=== PATIENT | female | born 1940 | race Caucasian/White ===

== ENCOUNTER 2018-05-16 11:34 | Emergency (ER) | payer OTHER, MEDICARE ==
[2018-05-16 11:42] VITALS: BP 142/106; PULSE 81; TEMP 98.5; BMI 23.8
--- NOTE | 2018-05-16 12:04 | PDOC ---
History of Present Illness - General Chief Complaint: Pain Stated Complaint: COUGHING/ CHEST PAIN Time Seen by Provider: 05/16/18 12:02 History Source: Patient Exam Limitations: No Limitations - History of Present Illness Initial Comments: 05/16/18 12:19 78 yo F with a hx of DM and HLD presents to the emergency department with epigastric pain that has been ongoing since yesterday with intermittent bouts for the past 4 weeks. Per the patient, onset of pain began after N/V NBNB episode around L[place] with concurrent non-productive cough. She was recently given a z-pack for the coughs and completed the course. Last night, the pain worsened and was 9/10, pressure like, radiating to the chest, with concurrent acid sensation in the oral cavity. Denies radiation to the arms and upper back. Denies the following: fever, chills, vomiting, SOB, dysuria, hematuria, diarrhea , hematochezia, and leg pain/swelling. Meds: metformin, aspirin 81 mg. Uses her medications intermittently and did not take aspirin today. Allergies: NKDA Social: Denies tobacco, alcohol, and substance abuse. Past History - Past Medical History Allergies/Adverse Reactions: Allergies Allergy/AdvReac Type Severity Reaction Status Date / Time No Known Allergies Allergy Verified 05/16/18 11:39 Home Medications: Ambulatory Orders Rosuvastatin Calcium [Crestor] 5 mg PO DAILY 08/02/14 metFORMIN HCL [Glucophage] 1,000 mg PO DAILY 08/02/14 Acetaminophen [Tylenol .Regular Strength -] 650 mg PO Q6H PRN #0 tablet Aspirin [ASA -] 325 mg PO DAILY #40 tablet 01/17/15 Pantoprazole Sodium [Protonix -] 40 mg PO DAILY #40 tablet.ec 01/17/15 Anemia: No Asthma: No Cancer: No Cardiac Disorders: No CVA: No COPD: No CHF: No Dementia: No Diabetes: Yes (NIDDM) GI Disorders: No Disorders: No HTN: No Hypercholesterolemia: Yes Liver Disease: No Seizures: No Thyroid Disease: No - Surgical History Abdominal Surgery: Yes Appendectomy: No Cardiac Surgery: No Cholecystectomy: No Lung Surgery: No Neurologic Surgery: No Orthopedic Surgery: Yes (LAMINECTOMY) - Suicide/Smoking/Psychosocial Hx Smoking History: Never smoked Have you smoked in the past 12 months: No Information on smoking cessation initiated: No Hx Alcohol Use: No Drug/Substance Use Hx: No Substance Use Type: None Hx Substance Use Treatment: No Review of Systems - Review of Systems Able to Perform ROS?: Yes Is the patient limited Turkish proficient: No Constitutional: Yes: Unexplained wgt Loss (10 lbs per patient over 1 month). No : Chills, Diaphoresis, Fever, Weakness, Unintentional Wgt. Loss HEENTM: No: Eye Pain, Recent change in vision, Ear Pain, Nose Pain, Throat Pain , Mouth Pain Respiratory: Yes: Cough. No: Shortness of Breath, SOB with Exertion, Hemoptysis Cardiac (ROS): Yes: Chest Pain (midline sternal/epigastric). No: Lightheadedness, Palpitations, Syncope, Chest Tightness ABD/GI: No: Constipated, Diarrhea, Nausea, Poor Appetite, Poor Fluid Intake, Vomiting : No: Burning, Dysuria, Frequency, Hematuria, Urgency Musculoskeletal: No: Back Pain, Joint Pain, Neck Pain Integumentary: No: Rash Neurological: No: Headache, Dizziness Psychiatric: No: Change in Appetite *Physical Exam - Vital Signs Last Vital Signs Temp Pulse Resp BP Pulse Ox 98.5 F 81 20 142/106 H 99 05/16/18 11:39 05/16/18 11:39 05/16/18 11:39 05/16/18 11:39 05/16/18 11:39 - Physical Exam General Appearance: Yes: Nourished, Appropriately Dressed. No: Apparent Distress, Intoxicated, Obese HEENT: positive: EOMI, GER, Normal Voice, Hearing Grossly Normal. negative: Pale Conjunctivae, Scleral Icterus (R), Scleral Icterus (L), Muffled/Hoarse voice, Nasal Congestion, Rhinorrhea, Excessive drooling Neck: positive: Trachea midline. negative: Tender, Lymphadenopathy (L), Tender lateral, Tender midline Respiratory/Chest: positive: Lungs Clear, Normal Breath Sounds. negative: Chest Tender, Respiratory Distress, Accessory Muscle Use, Crackles, Rales, Rhonchi, Stridor, Wheezing Cardiovascular: positive: Regular Rhythm, Regular Rate, S1, S2. negative: Systolic Murmur Gastrointestinal/Abdominal: positive: Normal Bowel Sounds, Flat, Soft. negative : Tender, Hernia Musculoskeletal: positive: Normal Inspection. negative: CVA Tenderness Extremity: positive: Normal Capillary Refill, Normal Inspection, Normal Range of Motion. negative: Tender Integumentary: positive: Normal Color, Dry, Warm Neurologic: positive: boiler fitter II-XII NML intact, Fully Oriented, Alert, Normal Mood/ Affect, Normal Response, Motor Strength 5/5. negative: EOM Palsy, Facial Droop Moderate Sedation - Procedure Monitoring Vital Signs: Procedure Monitoring Vital Signs Temperature 98.5 F 05/16/18 11:39 Pulse Rate 81 05/16/18 11:39 Respiratory Rate 20 05/16/18 11:39 Blood Pressure 142/106 H 05/16/18 11:39 O2 Sat by Pulse Oximetry (%) 99 05/16/18 11:39 ED Treatment Course - LABORATORY CBC & Chemistry Diagram: 05/16/18 12:45 05/16/18 12:45 Medical Decision Making - Medical Decision Making 05/16/18 13:40 78 yo F with a hx of DM and HLD presents to the emergency department with epigastric pain that has been ongoing since yesterday with intermittent bouts for the past 4 weeks. Initial vitals Initial Vital Signs Temp Pulse Resp BP Pulse Ox 98.5 F 81 20 142/106 H 99 05/16/18 11:39 05/16/18 11:39 05/16/18 11:39 05/16/18 11:39 05/16/18 11:39 Work up: ddx: SBO, gastritis PNA, GERD, colitis vs URI vs esophagitis vs acs vs pericarditis mesenteric ischemia pancreatitis Laboratory Tests 05/16/18 05/16/18 05/16/18 09:15 12:45 12:45 WBC 6.1 RBC 5.09 Hgb 13.7 Hct 40.9 MCV 80.4 MCH 27.0 MCHC 33.6 RDW 14.1 Plt Count 210 MPV 7.8 Absolute Neuts (auto) 3.1 Neutrophils % 50.7 Lymphocytes % 40.4 H Monocytes % 7.2 Eosinophils % 1.2 Basophils % 0.5 Nucleated RBC % 0 Sodium 139 Potassium 3.9 Chloride 104 Carbon Dioxide 24 Anion Gap 11 BUN 15 Creatinine 0.6 Creat Clearance w eGFR > 60 Random Glucose 108 H Hemoglobin A1c % 7.7 H Lactic Acid Calcium 9.1 Total Bilirubin 0.3 AST 14 L ALT 21 Alkaline Phosphatase 59 Creatine Kinase 84 Troponin I < 0.02 Total Protein 7.3 Albumin 3.9 Lipase 206 05/16/18 12:45 WBC RBC Hgb Hct MCV MCH MCHC RDW Plt Count MPV Absolute Neuts (auto) Neutrophils % Lymphocytes % Monocytes % Eosinophils % Basophils % Nucleated RBC % Sodium Potassium Chloride Carbon Dioxide Anion Gap BUN Creatinine Creat Clearance w eGFR Random Glucose Hemoglobin A1c % Lactic Acid 0.9 Calcium Total Bilirubin AST ALT Alkaline Phosphatase Creatine Kinase Troponin I Total Protein Albumin Lipase CT chest and abdomen pelvis with IV contrast showed the following: interstitial lung disease most likely chronic in nature. no evidence of acute pathology within the abdomen or pelvis. labs within normal limits. patient was given zofran, NS, tylenol, maalox, and pepcid. patient has significant improvement in symptoms. patient will be discharged to her PMD for follow up within 1 week after discharge. Dispo: Discharge *DC/Admit/Observation/Transfer Diagnosis at time of Disposition: Abdominal pain Qualifiers: Abdominal location: unspecified location Qualified Code(s): R10.9 - Unspecified abdominal pain - Discharge Dispostion Disposition: HOME Decision to Admit order: No - Referrals Referrals: David Maciel MD [Staff Physician] - - Patient Instructions Printed Discharge Instructions: DI for Abdominal Pain-Adult Additional Instructions: you were seen in the emergency department for abdominal pain. your labs and imaging were within normal limits. please follow up with Dr. Maciel within 1 week after discharge for follow up care and management. please return to the emergency department if you have worsening symptoms or new concerning symptoms such as nausea/vomiting that is uncontrollable, fever/chills with abdominal pain , and altered mental status. thank you. - Post Discharge Activity
[2018-05-16] MEDS ORDERED: SODIUM CHLORIDE 1,000 ML IV STA (12:26)
[2018-05-16] MEDS ORDERED: ACETAMINOPHEN 1000 MG/100 ML VIAL (NON FORMULARY) IVPB ONE (12:26)
[2018-05-16] MEDS ORDERED: FAMOTIDINE 20 MG/50 ML IVPB 20 MG/50 ML MG IVPB ONE ×2 (12:26→12:48)
[2018-05-16] MEDS ORDERED: MAG HYDROX/AL HYDROX/SIMETH 30 ML UNIT-DOSE CUP PO ONE (12:26)
[2018-05-16] MEDS ORDERED: ONDANSETRON 4 MG/2 ML VIAL IVPUSH ONE (12:26)
[2018-05-16] MEDS ORDERED: ONDANSETRON 4 MG/2 ML VIAL ONE (12:48)
[2018-05-16] MEDS ORDERED: ACETAMINOPHEN INJECTION 100 ML IVPB ONE (12:48)
[2018-05-16 12:52] LABS: BASO % 0.5 % (0-2.0); EOS % 1.2 % (0-4.5); HEMATOCRIT 40.9 % (32.4-45.2); HEMOGLOBIN 13.7 GM/dL (10.7-15.3); LYMPH % 40.4 % (8-40); MCHC 33.6 g/dl (32.0-36.0); MEAN CELL VOLUME 80.4 fl (80-96); MEAN PLT VOLUME 7.8 fl (7.5-11.1); MONO % 7.2 % (3.8-10.2); NEUT % 50.7 % (42.8-82.8); PLATELET COUNT 210 K/MM3 (134-434); RBC 5.09 M/mm3 (3.60-5.2); RDW 14.1 % (11.6-15.6); WHITE BLOOD COUNT 6.1 K/mm3 (4.0-10.0)
[2018-05-16 13:27] LABS: ALBUMIN 3.9 g/dl (3.4-5.0); ALK PHOS 59 U/L (45-117); ANION GAP 11 MMOL/L (8-16); BILIRUBIN,TOTAL 0.3 mg/dL (0.2-1); BLOOD UREA NITROGEN 15 mg/dL (7-18); CALCIUM 9.1 mg/dL (8.5-10.1); CHLORIDE 104 mmol/L (98-107); CO2 24 mmol/L (21-32); CREATININE 0.6 mg/dL (0.55-1.3); GLUCOSE,RANDOM 108 mg/dL (74-106); LIPASE 206 U/L (73-393); POTASSIUM 3.9 mmol/L (3.5-5.1); SGOT/AST 14 U/L (15-37); SGPT/ALT 21 U/L (13-61); SODIUM 139 mmol/L (136-145); TOT PROT 7.3 g/dl (6.4-8.2)
[2018-05-16] MEDS ORDERED: MAG HYDROX/AL HYDROX/SIMETH 30 ML UNIT-DOSE CUP ONE (13:29)
--- NOTE | 2018-05-16 15:30 | PDOC ---
Attending Attestation - Resident Resident Name: Benigno Infante - ED Attending Attestation I have performed the following: I have examined & evaluated the patient, The case was reviewed & discussed with the resident, I agree w/resident's findings & plan, Exceptions are as noted - HPI HPI: 05/16/18 15:24 The patient is a 78 year old female, with a significant past medical history of DM and HLD, who presents to the emergency department with, epigastric pain and cough. Patient describes the pain as intermittent and radiating upwards with an acidic taste in her mouth. She denies any recent N/V but had an episode of NBNB emesis around hilario-time. Pt also endorses a dry cough for several days. Patient was recently treated with a Z-pack earlier this month for the cough, without relief. She denies recent fevers, chills, headache or dizziness. She denies recent nausea, vomit, diarrhea or constipation. She denies recent dysuria, frequency, urgency or hematuria. She denies recent shortness of breath. Allergies: NKA Past surgical history: Laminectomy. - Physicial Exam PE: 05/16/18 15:50 "GENERAL: Awake, alert, and fully oriented, in no acute distress. HEAD: No signs of trauma EYES: PERRLA, EOMI, sclera anicteric, conjunctiva clear ENT: Auricles normal inspection, hearing grossly normal, nares patent, oropharynx clear without exudates. Moist mucosa NECK: Nontender, no stepoffs, Normal ROM, supple, no lymphadenopathy, JVD, or masses LUNGS: Breath sounds equal, clear to auscultation bilaterally. No wheezes, and no crackles HEART: Regular rate and rhythm, normal S1 and S2, no murmurs, rubs or gallops ABDOMEN: + epigastric and LLQ TTP, normoactive bowel sounds. No guarding, no rebound. No masses EXTREMITIES: Normal range of motion, no edema. No clubbing or cyanosis. No cords, erythema, or tenderness NEUROLOGICAL: Cranial nerves II through XII intact. 5/5 strength and sensation in all extremities, Normal speech, normal gait, normal cerebellar function SKIN: Warm, Dry, normal turgor, no rashes or lesions noted. - Medical Decision Making 05/16/18 15:50 78 F with dry cough, as well as epigastric and LLQ abdominal pain. - Labs, trop - EKG - CTAP - CT chest 05/16/18 15:51 Labs wnl CTs unremarkable Will DC with GI f/u Pt is well appearing, with normal vitals. Clinically stable for DC at this time. I discussed the physical exam findings, ancillary test results and final diagnoses with the patient. I answered all of the patient's questions. The patient was satisfied with the care received and felt comfortable with the discharge plan and treatment plan. The patient agrees to follow up with the primary care physician within 24-72 hours.
--- NOTE | 2018-05-16 18:29 | EKG ---
Test Reason : Blood Pressure : / mmHG Vent. Rate : 071 BPM Atrial Rate : 071 BPM P-R Int : 150 ms QRS Dur : 080 ms QT Int : 404 ms P-R-T Axes : 059 040 049 degrees QTc Int : 439 ms NORMAL SINUS RHYTHM WHEN COMPARED WITH ECG OF 12-JAN-2015 10:32, NO SIGNIFICANT CHANGE WAS FOUND Confirmed by JOHN SAGE MD ([id number]) on 05/16/2018 6:28:46 PM Referred By: Confirmed By:JOHN SAGE MD
[2018-05-18 11:19] LABS: CHOLESTEROL 174 mg/dL (50-200); HDL CHOLESTEROL 51 mg/dL (40-60); TRIGLYCERIDES 176 mg/dL (0-150)
== END 2018-05-16 15:40 | disposition home or self-care (01) ==
LOC: JER 11:34
PROC: 3E033GC Introduction of Other Therapeutic Substance into Peripheral Vein, Percutaneous Approach (ICD-10-PCS; principal; 2018-05-16)
PROC: 3E033GC Introduction of Other Therapeutic Substance into Peripheral Vein, Percutaneous Approach (ICD-10-PCS; 2018-05-16)
PROC: 3E033NZ Introduction of Analgesics, Hypnotics, Sedatives into Peripheral Vein, Percutaneous Approach (ICD-10-PCS; 2018-05-16)
DX: R10.9 Unspecified abdominal pain (principal); J84.89 Other specified interstitial pulmonary diseases; E11.9 Type 2 diabetes mellitus without complications; Z79.84 Long term (current) use of oral hypoglycemic drugs; E78.5 Hyperlipidemia, unspecified
CPT/HCPCS: 36415; 71260-TC; 74177-TC; 80053; 80061; 82550; 83036; 83605; 83690; 83721; 84484; 85025; 86140; 93005; 93010; 96365; 96375; 99283-25; J0131; J7030

== ENCOUNTER 2019-07-10 13:08 | Emergency (ER) | payer OTHER, MEDICARE ==
--- NOTE | 2019-07-10 13:13 | PDOC ---
History of Present Illness - General Chief Complaint: Injury Stated Complaint: FALL Time Seen by Provider: 07/10/19 13:12 - History of Present Illness Initial Comments: 07/10/19 14:02 Ms. Farfan is a 79 yo female w/ pmh of DM, HTN, and HLD who presents s/p fall earlier today for evaluation of shoulder pain. Patient accompanied by daughter who is a physician and reports patient fell down her stairs, landing on R shoulder. Currently complaining of pain to R shoulder only. Denies LOC or head injury. Denies any other pain at this time. Patient is very clear she lost her balance and that this caused her fall. Denies any preceding symptoms of dizziness or weakness. The patient denies chest pain, shortness of breath, headache and dizziness. Denies fever, chills, nausea, vomit, diarrhea and constipation. Denies dysuria, frequency, urgency and hematuria. Past History - Past Medical History Allergies/Adverse Reactions: Allergies Allergy/AdvReac Type Severity Reaction Status Date / Time No Known Allergies Allergy Verified 05/16/18 11:39 Home Medications: Ambulatory Orders metFORMIN HCL [Glucophage] 1,000 mg PO DAILY 08/02/14 Atorvastatin Ca [Lipitor] 10 mg PO HS 07/10/19 Anemia: No Asthma: No Cancer: No Cardiac Disorders: No CVA: No COPD: No CHF: No Dementia: No Diabetes: Yes (NIDDM) GI Disorders: No Disorders: No HTN: No Hypercholesterolemia: Yes Liver Disease: No Seizures: No Thyroid Disease: No - Surgical History Abdominal Surgery: Yes Appendectomy: No Cardiac Surgery: No Cholecystectomy: No Lung Surgery: No Neurologic Surgery: No Orthopedic Surgery: Yes (LAMINECTOMY) - Psycho Social/Smoking Cessation Hx Smoking History: Never smoked Have you smoked in the past 12 months: No Hx Alcohol Use: No Drug/Substance Use Hx: No Substance Use Type: None Hx Substance Use Treatment: No Review of Systems - Review of Systems Comments:: 07/10/19 14:14 GENERAL/CONSTITUTIONAL: No fever or chills. No weakness. HEAD, EYES, EARS, NOSE AND THROAT: No change in vision. No ear pain or disch arge. No sore throat. CARDIOVASCULAR: No chest pain or shortness of breath RESPIRATORY: No cough, wheezing, or hemoptysis. GASTROINTESTINAL: No nausea, vomiting, diarrhea or constipation. GENITOURINARY: No dysuria, frequency, or change in urination. MUSCULOSKELETAL: +R shoulder pain as described. Patient reporting mild parasthesias along outside of R 5th finger. SKIN: No rash NEUROLOGIC: No headache, vertigo, loss of consciousness, or change in strength/sensation. ENDOCRINE: No increased thirst. No abnormal weight change HEMATOLOGIC/LYMPHATIC: No anemia, easy bleeding, or history of blood clots. ALLERGIC/IMMUNOLOGIC: No hives or skin allergy. *Physical Exam - Physical Exam 07/10/19 14:14 GENERAL: Awake, alert, and fully oriented, in no acute distress HEAD: No signs of trauma, normocephalic, atraumatic EYES: PERRLA, EOMI, sclera anicteric, conjunctiva clear ENT: Auricles normal inspection, hearing grossly normal, nares patent, oropha rynx clear without exudates. Moist mucosa NECK: Normal ROM, supple, no lymphadenopathy, JVD, or masses LUNGS: No distress, speaks full sentences, clear to auscultation bilaterally HEART: Regular rate and rhythm, normal S1 and S2, no murmurs, rubs or gallops, peripheral pulses normal and equal bilaterally. ABDOMEN: Soft, nontender, normoactive bowel sounds. No guarding, no rebound. No masses EXTREMITIES: +R shoulder obviously deformed. Patient having difficulty w/ movement at shoulder joint. Neurovascularly intact. Patient has no sensation change, pulses strong. Otherwise normal inspection, normal range of motion, no edema. No clubbing or cyanosis. NEUROLOGICAL: Cranial nerves II through XII grossly intact. Normal speech, no focal sensorimotor deficits SKIN: Warm, Dry, normal turgor, no rashes or lesions noted. Moderate Sedation - Pre-Procedure Assessment Joint Reduction Is this a Moderate (Conscious) sedation patient?: Yes Med/Surg Hx & PE performed: Yes Does the patient have a history of Obstructive Sleep Apnea: No Prior complications with sedation/analgesia: No NPO since (date): 07/10/19 NPO since (time): 08:00 Mallampati Score: I Consent obtained: Written Time out called (time): 14:00 Items checked for time out procedure: All work stopped, Patient identified using 2 identifiers, Procedure to be performed verified & agreed, Allergies noted, Consent read, Site marked & verified (if indicated), ED physician/EPOXY SPECIALIST/PA/Resident identified, Patient position verified, All active procedure participants present from the beginning Sedation agent: Propofol - Post Procedure Assessment Tolerated procedure well: Yes Was a reversal agent used?: No Patient evaluation: Awake, alert and oriented, Vital signs reviewed, Cardiopulmonary exam normal, Pain controlled Printed Discharge Instructions given: Yes Procedures - Joint Reduction Right Joint Reduction Site: right: Shoulder Pre-Procedure NV Exam: normal Conscious Sedation: Yes Reduction Attempts: 2 Procedure: Other Post-Procedure NV Exam: normal Complications: No Post Joint Reduction Film: joint reduced Splint: Yes ED Treatment Course - LABORATORY CBC & Chemistry Diagram: 07/10/19 13:26 07/10/19 13:26 Medical Decision Making - Medical Decision Making 07/10/19 14:15 Ms. Farfan is a 79 yo female w/ pmh as described who presents s/p mechanical fall. Patient well appearing w/ shoulder deformity only. Patient evaluated w/ XR and pre-op labs prophylactically. XR revealed simple anterior dislocation. Patient consented to conscious sedation - patient given 35 mg ketamine and 35 mg propofol with good effect. Joint reduction attempted w/out difficulty. Confirmatory XR pending. 07/10/19 15:32 Repeat film revealed non-reduction. Repeat concious sedation with 35mg ketamine/35mg propofol done and joint reduction again attempted. XR pending. 07/10/19 15:40 XR confirmed shoulder reduction. Patient will follow-up outpatient for further evaluation. Tingling of R 5th finger patient previously reported has ceased. No concern for acute process at this time. Discharging to home. Discharge - Discharge Information Problems reviewed: Yes Clinical Impression/Diagnosis: Shoulder dislocation Qualifiers: Encounter type: initial encounter Laterality: right Qualified Code(s): S43.004A - Unspecified dislocation of right shoulder joint, initial encounter Condition: Improved Disposition: HOME - Follow up/Referral Referrals: Itz Spring MD [Staff Physician] - - Patient Discharge Instructions Patient Printed Discharge Instructions: DI for Shoulder Dislocation, DI for Moderate Sedation Additional Instructions: Ms. Farfan was evaluated today in the ER following her fall. We performed shoulder Xray which revealed a shoulder dislocation. We were able to reduce the shoulder and discussed the case with orthopedics who will evaluate outpatient. She may take over the counter motrin or tylenol per package instructions as needed for pain control. Please follow-up with orthopedics as discussed. Return to ER if any change in strength or sensation, fever, chills, or other concerning symptoms. - Post Discharge Activity
[2019-07-10] MEDS ORDERED: HYDROmorphone HCl 2 MG/ML VIAL ONE (13:18)
[2019-07-10 13:19] VITALS: PULSE 70; TEMP 97.5; BMI 27.4
[2019-07-10] MEDS ORDERED: HYDROmorphone HCL CARPU-JECT 2 MG/1 ML DISP.SYRIN IVPUSH ONE (13:20)
[2019-07-10] MEDS ORDERED: ONDANSETRON 4 MG/2 ML VIAL IVPUSH ONE ×2 (13:25→16:09)
--- NOTE | 2019-07-10 13:25 | PDOC ---
Attending Attestation - Resident Resident Name: Tristin Granados - ED Attending Attestation I have performed the following: I have examined & evaluated the patient, The case was reviewed & discussed with the resident, I agree w/resident's findings & plan - HPI HPI: 07/10/19 13:33 79-year-old female with history of hyperlipidemia, diabetes type 2, GERD and osteoarthritis status post left medial makoplasty (2014), kidney stone status post ureteral stent presenting after fall and landing on her right shoulder. Presenting with right shoulder pain, difficulty moving secondary to the pain. Denies any paresthesias or weakness. Denies LOC or head injury. no ASA or AC use 07/10/19 13:33 - Physicial Exam PE: 07/10/19 13:23 Physical exam: General: GCS 15 - NAD, well appearing HEENT: NCAT, PERRL, EOMI. Airway intact. No battles sign or raccoon eyes. No e/o ocular. Dentition intact. No e/o septal hematoma, nasal bridge stable. Neck: neck supple, no midline C spine tenderness or deformity, ROM intact. No anterior mass or crepitus, trachea midline. Resp: Lungs clear bilaterally Chest: no clavicle or chest wall tenderness or crepitus CVS: RRR, 2+ pulses throughout. Abdomen: Abdomen soft, nontender, nondistended. Back: Back nontender, no midline spinal tenderness along cervical/thoracic/lumbar spine, FROM, no stepoffs. MSK: Pelvis stable, Extremities symmetric, no focal areas of tenderness or deformities, proximal and distally; no pain on axial loading. FROM in all extrem. +right anterior shoulder TTP, palp deformity, shoulder abduction/adduction/flexion/extension limited 2/2 pain and prox strength 5/5 actively against resistance. 5/5 shoulder shrug strength. deltoid sensation intact; sensation grossly intact in median/radial/ulnar distribution. distal rn oncology research strength 5/5. 2+ radialis pulses bilaterally and symmetric. FDS And FDP intact in affected finger. Neuro: Alert, no focal neuro deficits. Sensation and strength intact throughout. Skin: intact, normal color and well perfused. 07/12/19 11:52 - Medical Decision Making 07/10/19 13:24 Vital Signs Temp Pulse Resp BP Pulse Ox 97.5 F L 70 20 161/67 97 07/10/19 13:12 03/15/20 13:12 07/10/19 13:12 07/10/19 13:12 07/10/19 13:12 Trauma ddx: ICH, SDH/ EDH, C spine injury/strain, extremity sprain/fracture, pelvis fracture. MSK contusion, msk spasms. Rib fractures. Clinically doubt Intra abdominal and thoracic injuries/bleed VS reviewed, wnl Xray right shoulder with anterior dislocation NVI consented for procedural sedation given ketofol, 0.5mg/kg per agent for conscious sedation initial attempt unsuccessful repeated with the resident with ketofol 0.5mg/kg successful on 2nd attempt with the Latrell method repeat xray post procedure with normal alignment, successful reduction no acute fx or dislocation. shoulder immobilizer, Rest ice and elevation. Pain control with OTC meds including tylenol as needed every 6 hours; no narcotics needed. Ortho followup provided. Please return to ED for increased pain, weakness, numbness/tingling, fever, or redness. or signs of compartment syndrome. f/u Yoseph Haines/Saw group sedation instructions given 07/10/19 15:52 Discharge - Discharge Information Problems reviewed: Yes Clinical Impression/Diagnosis: Shoulder dislocation Qualifiers: Encounter type: initial encounter Laterality: right Qualified Code(s): S43.004A - Unspecified dislocation of right shoulder joint, initial encounter Condition: Improved Disposition: HOME - Admission No - Follow up/Referral Referrals: Itz Spring MD [Staff Physician] - - Patient Discharge Instructions Patient Printed Discharge Instructions: DI for Shoulder Dislocation, DI for Moderate Sedation Additional Instructions: Ms. Farfan was evaluated today in the ER following her fall. We performed shoulder Xray which revealed a shoulder dislocation. We were able to reduce the shoulder and discussed the case with orthopedics who will evaluate outpatient. She may take over the counter motrin or tylenol per package instructions as needed for pain control. Please follow-up with orthopedics as discussed. Return to ER if any change in strength or sensation, fever, chills, or other concerning sym ptoms. - Post Discharge Activity
[2019-07-10] MEDS ORDERED: ONDANSETRON 4 MG/2 ML VIAL ONE ×2 (13:30→16:10)
[2019-07-10 13:46] LABS: BASO % 0.2 % (0-2.0); HEMATOCRIT 42.6 % (32.4-45.2); HEMOGLOBIN 13.7 GM/dL (10.7-15.3); LYMPH % 44.3 % (8-40); MCH 26.3 pg (25.7-33.7); MCHC 32.1 g/dl (32.0-36.0); MEAN CELL VOLUME 82.1 fl (80-96); MEAN PLT VOLUME 8.6 fl (7.5-11.1); MONO % 8.4 % (3.8-10.2); NEUT % 45.1 % (42.8-82.8); PLATELET COUNT 194 K/MM3 (134-434); RBC 5.19 M/mm3 (3.60-5.2); WHITE BLOOD COUNT 6.9 K/mm3 (4.0-10.0)
[2019-07-10] MEDS ORDERED: KETAMINE HCL 200 MG/20 ML VIAL IVPUSH ONE ×2 (13:48→15:17)
[2019-07-10] MEDS ORDERED: PROPOFOL 200 MG/20 ML VIAL IVPUSH ONE ×2 (13:48→15:17)
[2019-07-10 13:54] LABS: INR 0.93 (0.83-1.09)
[2019-07-10] MEDS ORDERED: KETAMINE HCL 200 MG/20 ML VIAL ONE (13:54)
[2019-07-10] MEDS ORDERED: PROPOFOL 20 ML ONE (13:55)
[2019-07-10 13:57] LABS: ACTIVATED PTT 28.3 SECONDS (25.2-36.5)
[2019-07-10 14:12] LABS: ALBUMIN 3.8 g/dl (3.4-5.0); BILIRUBIN,TOTAL 0.2 mg/dL (0.2-1); BLOOD UREA NITROGEN 16.4 mg/dL (7-18); CALCIUM 8.9 mg/dL (8.5-10.1); CREATININE 0.5 mg/dL (0.55-1.3); POTASSIUM 4.2 mmol/L (3.5-5.1); TOT PROT 7.4 g/dl (6.4-8.2)
[2019-07-10 17:48] VITALS: BP 139/64
== END 2019-07-10 16:32 | disposition home or self-care (01) ==
LOC: JER 13:08
PROC: 3E033FZ Introduction of Intracirculatory Anesthetic into Peripheral Vein, Percutaneous Approach (ICD-10-PCS; principal; 2019-07-10)
PROC: 3E033NZ Introduction of Analgesics, Hypnotics, Sedatives into Peripheral Vein, Percutaneous Approach (ICD-10-PCS; 2019-07-10)
PROC: 3E033GC Introduction of Other Therapeutic Substance into Peripheral Vein, Percutaneous Approach (ICD-10-PCS; 2019-07-10)
DX: S43.004A Unspecified dislocation of right shoulder joint, initial encounter (principal); W10.8XXA Fall (on) (from) other stairs and steps, initial encounter; Y93.89 Activity, other specified; Y92.038 Other place in apartment as the place of occurrence of the external cause; Y99.8 Other external cause status; I10 Essential (primary) hypertension; E78.00 Pure hypercholesterolemia, unspecified; E11.9 Type 2 diabetes mellitus without complications; Z79.84 Long term (current) use of oral hypoglycemic drugs
CPT/HCPCS: 36415; 73030-TC-RT-FY; 80053; 85025; 85610; 85730; 96374; 96375; 96376; 99285-25

== ENCOUNTER 2020-07-07 14:15 | Inpatient (IN) | payer OTHER ==
[2020-07-07] MEDS ORDERED: ONDANSETRON 4 MG/2 ML VIAL IVPUSH ONE (14:20)
[2020-07-07] MEDS ORDERED: SODIUM CHLORIDE 1,000 ML IV STA (14:20)
[2020-07-07] MEDS ORDERED: PIPERACILLIN/TAZOB 3.375 GM 3.375 GM/50 ML BAG IVPB ONE (14:44)
[2020-07-07] MEDS ORDERED: ONDANSETRON 4 MG/2 ML VIAL ONE (14:44)
[2020-07-07] MEDS ORDERED: MAG HYDROX/AL HYDROX/SIMETH 30 ML UNIT-DOSE CUP PO ONE (14:45)
[2020-07-07] MEDS ORDERED: FAMOTIDINE 20 MG/50 ML IVPB 20 MG/50 ML MG IVPB ONE ×2 (14:45→15:39)
[2020-07-07] MEDS ORDERED: ACETAMINOPHEN 1000 MG/100 ML VIAL (NON FORMULARY) IVPB ONE (14:46)
[2020-07-07 15:33] LABS: BASO % 0.1 % (0-2.0); HEMATOCRIT 35.6 % (32.4-45.2); HEMOGLOBIN 11.6 GM/dL (10.7-15.3); LYMPH % 9.5 % (8-40); MCH 26.6 pg (25.7-33.7); MCHC 32.5 g/dl (32.0-36.0); MEAN CELL VOLUME 81.7 fl (80-96); MEAN PLT VOLUME 8.5 fl (7.5-11.1); MONO % 10.9 % (3.8-10.2); NEUT % 79.5 % (42.8-82.8); PLATELET COUNT 165 K/MM3 (134-434); RBC 4.36 M/mm3 (3.60-5.2); RDW 14.2 % (11.6-15.6); WHITE BLOOD COUNT 8.7 K/mm3 (4.0-10.0)
[2020-07-07] MEDS: PIPERACILLIN/TAZOB 3.375 GM 3.375 GM in DEXTROSE 5%-WATER - 50 ML IVPB SCH ×2 (15:36→22:10)
[2020-07-07] MEDS ORDERED: MAG HYDROX/AL HYDROX/SIMETH 30 ML UNIT-DOSE CUP ONE (15:39)
[2020-07-07] MEDS ORDERED: ACETAMINOPHEN INJECTION 100 ML IVPB ONE (15:39)
[2020-07-07 15:41] LABS: INR 1.14 (0.83-1.09)
[2020-07-07 15:44] LABS: ACTIVATED PTT 25.8 SECONDS (25.2-36.5)
[2020-07-07 15:57] LABS: PH,URINE 5.5 (5.0-8.0); URINE APPEARANCE Slightly Cloudy; URINE BILIRUBIN Negative (NEGATIVE); URINE COLOR Yellow; URINE GLUCOSE (UA) Trace (NEGATIVE); URINE KETONE 2+ (NEGATIVE); URINE LEUK ESTERASE 1+ (NEGATIVE); URINE NITRITE Positive (NEGATIVE); URINE PROTEIN 2+ (NEGATIVE); URINE UROBILINOGEN 0.2 mg/dL (0.2-1.0)
[2020-07-07 15:57] LABS: CHLORIDE 103 mmol/L (98-107); POTASSIUM 3.6 mmol/L (3.5-5.1); SODIUM 134 mmol/L (136-145)
[2020-07-07 15:59] LABS: CALCIUM 8.6 mg/dL (8.5-10.1)
[2020-07-07 16:00] LABS: ALBUMIN 3.3 g/dl (3.4-5.0); ANION GAP 9 MMOL/L (8-16); CO2 22 mmol/L (21-32); GLUCOSE,RANDOM 188 mg/dL (74-106)
[2020-07-07 16:03] LABS: CREATININE 0.6 mg/dL (0.55-1.3); SGOT/AST 15 U/L (15-37); SGPT/ALT 22 U/L (13-61)
[2020-07-07 16:04] LABS: BILIRUBIN,TOTAL 0.6 mg/dL (0.2-1)
[2020-07-07 16:05] LABS: TOT PROT 6.7 g/dl (6.4-8.2)
[2020-07-07 16:06] LABS: ALK PHOS 67 U/L (45-117)
[2020-07-07] MEDS ORDERED: ONDANSETRON 4 MG/2 ML VIAL IVPUSH PRN (16:49)
[2020-07-07] MEDS ORDERED: SODIUM CHLORIDE 1,000 ML IV SCH (17:00)
[2020-07-07 17:12] LABS: EPI CELLS 6.8 /uL (0-25.1); HYALINE CASTS 1.57 /uL (0-3.1); URINE BACTERIA 2918.5 /uL (0-1359); URINE CRYSTALS 0 /hpf; URINE RBC 71.4 /uL (0-23.9); URINE WBC 8952.3 /uL (0-25.8)
[2020-07-07] MEDS ORDERED: TAMSULOSIN HCL 0.4 MG CAP ONE (17:31)
[2020-07-07] MEDS: TAMSULOSIN HCL 0.4 MG CAP PO SCH (17:41)
[2020-07-07] MEDS ORDERED: PIPERACILLIN/TAZOBACTAM 3.375 GM VIAL IVPB ONE (21:53)
[2020-07-07] MEDS ORDERED: DEXTROSE 5%-WATER - 50 ML IVPB ONE (21:53)
[2020-07-07] MEDS ORDERED: CEFTRIAXONE 1 GM in DEXTROSE 5%-WATER - 50 ML IVPB SCH (22:00)
[2020-07-07] MEDS: ATORVASTATIN CA 10 MG TABLET (FP) PO SCH (22:13)
[2020-07-07] MEDS: ACETAMINOPHEN 325 MG TABLET (FP) PO PRN (22:44)
[2020-07-08] MEDS ORDERED: DEXTROSE 5%-WATER - 50 ML IVPB ONE ×3 (03:53→15:40)
[2020-07-08] MEDS ORDERED: PIPERACILLIN/TAZOBACTAM 3.375 GM VIAL IVPB ONE ×3 (03:53→15:39)
[2020-07-08] MEDS: PIPERACILLIN/TAZOB 3.375 GM 3.375 GM in DEXTROSE 5%-WATER - 50 ML IVPB SCH ×4 (04:06→18:10)
[2020-07-08] MEDS: ACETAMINOPHEN 325 MG TABLET (FP) PO PRN ×3 (06:21→21:46)
[2020-07-08] MEDS: TAMSULOSIN HCL 0.4 MG CAP PO SCH (08:37)
[2020-07-08 08:40] LABS: BASO % 0.2 % (0-2.0); EOS % 0.4 % (0-4.5); LYMPH % 11.4 % (8-40); MCHC 33.3 g/dl (32.0-36.0); MEAN PLT VOLUME 8.3 fl (7.5-11.1); MONO % 12.5 % (3.8-10.2); NEUT % 75.5 % (42.8-82.8); PLATELET COUNT 161 K/MM3 (134-434); RBC 4.08 M/mm3 (3.60-5.2); RDW 14.3 % (11.6-15.6)
[2020-07-08] MEDS ORDERED: PIPERACILLIN/TAZOB 3.375 GM 3.375 GM in DEXTROSE 5%-WATER - 50 ML IVPB SCH (09:00)
[2020-07-08 09:10] LABS: POTASSIUM 3.8 mmol/L (3.5-5.1)
[2020-07-08 09:18] LABS: ALBUMIN 2.8 g/dl (3.4-5.0); BLOOD UREA NITROGEN 13.2 mg/dL (7-18); CALCIUM 8.2 mg/dL (8.5-10.1)
[2020-07-08] MEDS: HEPARIN NA (PORCINE) 5,000 UNITS/ML 1ML VIAL SQ SCH ×2 (09:19→21:44)
[2020-07-08] MEDS: FAMOTIDINE 20 MG TABLET PO SCH (09:19)
[2020-07-08 09:21] LABS: BILIRUBIN,TOTAL 0.6 mg/dL (0.2-1); CREATININE 0.6 mg/dL (0.55-1.3); TOT PROT 5.9 g/dl (6.4-8.2)
[2020-07-08] MEDS ORDERED: GENTAMICIN 80 MG PREMIXED IVPB 80 MG/100 ML BAG IVPB ONE (10:30)
[2020-07-08] MEDS: ATORVASTATIN CA 10 MG TABLET (FP) PO SCH (21:44)
[2020-07-08] MEDS ORDERED: GENTAMICIN INJECTION 100 MG in SODIUM CHLORIDE 97.5 ML IVPB ONE (23:30)
[2020-07-08] MEDS: SODIUM CHLORIDE 1,000 ML IV SCH (23:45)
[2020-07-09] MEDS ORDERED: PIPERACILLIN/TAZOBACTAM 3.375 GM VIAL IVPB ONE ×2 (01:36→09:20)
[2020-07-09] MEDS ORDERED: DEXTROSE 5%-WATER - 50 ML IVPB ONE ×2 (01:37→09:20)
[2020-07-09] MEDS: PIPERACILLIN/TAZOB 3.375 GM 3.375 GM in DEXTROSE 5%-WATER - 50 ML IVPB SCH ×2 (01:46→10:54)
[2020-07-09 08:35] LABS: BASO % 0.2 % (0-2.0); EOS % 0.9 % (0-4.5); HEMATOCRIT 36.3 % (32.4-45.2); LYMPH % 30.3 % (8-40); MEAN CELL VOLUME 81.7 fl (80-96); MEAN PLT VOLUME 8.2 fl (7.5-11.1); MONO % 11.1 % (3.8-10.2); NEUT % 57.5 % (42.8-82.8); PLATELET COUNT 180 K/MM3 (134-434); RBC 4.44 M/mm3 (3.60-5.2); RDW 14.8 % (11.6-15.6); WHITE BLOOD COUNT 4.7 K/mm3 (4.0-10.0)
[2020-07-09 08:50] LABS: POTASSIUM 3.9 mmol/L (3.5-5.1)
[2020-07-09 08:58] LABS: ALBUMIN 2.8 g/dl (3.4-5.0); CALCIUM 8.5 mg/dL (8.5-10.1)
[2020-07-09 08:59] LABS: BLOOD UREA NITROGEN 9.1 mg/dL (7-18)
[2020-07-09 09:01] LABS: BILIRUBIN,TOTAL 0.4 mg/dL (0.2-1)
[2020-07-09 09:02] LABS: CREATININE 0.6 mg/dL (0.55-1.3); TOT PROT 6.5 g/dl (6.4-8.2)
[2020-07-09] MEDS ORDERED: MEROPENEM 1 GM VIAL (RESTRICTED TO ID) IVPB ONE ×2 (10:50→17:30)
[2020-07-09] MEDS ORDERED: DEXTROSE 5%-WATER 100 ML IVPB ONE ×2 (10:50→17:30)
[2020-07-09] MEDS: MEROPENEM 1 GM in DEXTROSE 5%-WATER 100 ML IVPB SCH ×2 (10:51→17:33)
[2020-07-09] MEDS: TAMSULOSIN HCL 0.4 MG CAP PO SCH (10:52)
[2020-07-09] MEDS: HEPARIN NA (PORCINE) 5,000 UNITS/ML 1ML VIAL SQ SCH ×2 (10:52→21:00)
[2020-07-09] MEDS: FAMOTIDINE 20 MG TABLET PO SCH (10:52)
[2020-07-09] MEDS: ACETAMINOPHEN 325 MG TABLET (FP) PO PRN (17:33)
[2020-07-09] MEDS ORDERED: PNEUMOC 13-VAL CONJ-DIP CRM/PF 0.5 ML DISP.SYRIN IM ONE (19:02)
[2020-07-09] MEDS: ATORVASTATIN CA 10 MG TABLET (FP) PO SCH (21:00)
[2020-07-09] MEDS: SODIUM CHLORIDE 1,000 ML IV SCH (23:47)
[2020-07-09] MEDS ORDERED: PT OWN MED DRAWER 7, Y5N ONE (23:51)
[2020-07-10] MEDS ORDERED: MEROPENEM 1 GM VIAL (RESTRICTED TO ID) IVPB ONE ×3 (00:32→16:58)
[2020-07-10] MEDS ORDERED: DEXTROSE 5%-WATER 100 ML IVPB ONE ×3 (00:32→16:58)
[2020-07-10] MEDS: MEROPENEM 1 GM in DEXTROSE 5%-WATER 100 ML IVPB SCH ×3 (02:25→17:01)
[2020-07-10] MEDS ORDERED: SODIUM CHLORIDE 1,000 ML IV SCH (03:59)
[2020-07-10 08:00] LABS: BASO % 0.3 % (0-2.0); EOS % 1.5 % (0-4.5); HEMATOCRIT 35.6 % (32.4-45.2); HEMOGLOBIN 11.6 GM/dL (10.7-15.3); MCH 26.4 pg (25.7-33.7); MCHC 32.6 g/dl (32.0-36.0); MEAN PLT VOLUME 8.2 fl (7.5-11.1); MONO % 11.1 % (3.8-10.2); NEUT % 58.1 % (42.8-82.8); PLATELET COUNT 192 K/MM3 (134-434); RBC 4.39 M/mm3 (3.60-5.2); RDW 14.6 % (11.6-15.6)
[2020-07-10] MEDS ORDERED: POLYETHYLENE GLYCOL 3350 119 GM BTL PO ONE (08:00)
[2020-07-10 08:13] LABS: POTASSIUM 3.7 mmol/L (3.5-5.1)
[2020-07-10 08:17] LABS: ALBUMIN 2.7 g/dl (3.4-5.0); BLOOD UREA NITROGEN 6.5 mg/dL (7-18)
[2020-07-10 08:21] LABS: CREATININE 0.5 mg/dL (0.55-1.3)
[2020-07-10 08:22] LABS: BILIRUBIN,TOTAL 0.3 mg/dL (0.2-1); TOT PROT 6.1 g/dl (6.4-8.2)
[2020-07-10 08:29] LABS: INR 1.03 (0.83-1.09); PROTHROMBIN TIME (PATIENT) 12.4 SEC (9.7-13.0)
[2020-07-10] MEDS ORDERED: PNEUMOC 13-VAL CONJ-DIP CRM/PF 0.5 ML DISP.SYRIN IM ONE ×2 (10:00→17:00)
[2020-07-10] MEDS: TAMSULOSIN HCL 0.4 MG CAP PO SCH (10:04)
[2020-07-10] MEDS: LACTOBACILLUS ACIDOPHILUS 1 TABLET PO SCH (10:16)
[2020-07-10] MEDS: FAMOTIDINE 20 MG TABLET PO SCH (10:17)
[2020-07-10] MEDS: HEPARIN NA (PORCINE) 5,000 UNITS/ML 1ML VIAL SQ SCH ×2 (10:17→21:19)
[2020-07-10] MEDS: ATORVASTATIN CA 10 MG TABLET (FP) PO SCH (21:19)
[2020-07-11] MEDS: SODIUM CHLORIDE 1,000 ML IV SCH ×3 (00:21→21:45)
[2020-07-11] MEDS ORDERED: DEXTROSE 5%-WATER 100 ML IVPB ONE ×3 (00:23→14:04)
[2020-07-11] MEDS ORDERED: MEROPENEM 1 GM VIAL (RESTRICTED TO ID) IVPB ONE ×2 (00:23→09:26)
[2020-07-11] MEDS: MEROPENEM 1 GM in DEXTROSE 5%-WATER 100 ML IVPB SCH ×2 (01:49→09:32)
[2020-07-11 09:06] LABS: INR 0.96 (0.83-1.09); PROTHROMBIN TIME (PATIENT) 11.8 SEC (9.7-13.0)
[2020-07-11 09:09] LABS: BASO % 0.2 % (0-2.0); EOS % 1.8 % (0-4.5); HEMATOCRIT 35.9 % (32.4-45.2); HEMOGLOBIN 11.9 GM/dL (10.7-15.3); LYMPH % 30.6 % (8-40); MCH 26.5 pg (25.7-33.7); MCHC 33.1 g/dl (32.0-36.0); MEAN CELL VOLUME 80.3 fl (80-96); MEAN PLT VOLUME 7.9 fl (7.5-11.1); MONO % 9.6 % (3.8-10.2); NEUT % 57.8 % (42.8-82.8); PLATELET COUNT 218 K/MM3 (134-434); RBC 4.47 M/mm3 (3.60-5.2); WHITE BLOOD COUNT 5.3 K/mm3 (4.0-10.0)
[2020-07-11 09:18] LABS: POTASSIUM 3.6 mmol/L (3.5-5.1)
[2020-07-11 09:20] LABS: CALCIUM 8.7 mg/dL (8.5-10.1)
[2020-07-11 09:21] LABS: ALBUMIN 2.7 g/dl (3.4-5.0); BLOOD UREA NITROGEN 7.7 mg/dL (7-18)
[2020-07-11 09:24] LABS: CREATININE 0.5 mg/dL (0.55-1.3)
[2020-07-11 09:26] LABS: BILIRUBIN,TOTAL 0.4 mg/dL (0.2-1); TOT PROT 6.2 g/dl (6.4-8.2)
[2020-07-11 09:27] LABS: ALBUMIN 2.8 g/dl (3.4-5.0)
[2020-07-11 09:29] LABS: BILIRUBIN,DIRECT 0.1 mg/dL (0.0-0.2)
[2020-07-11 09:31] LABS: BILIRUBIN,TOTAL 0.2 mg/dL (0.2-1); TOT PROT 6.3 g/dl (6.4-8.2)
[2020-07-11] MEDS: FAMOTIDINE 20 MG TABLET PO SCH (09:32)
[2020-07-11] MEDS: LACTOBACILLUS ACIDOPHILUS 1 TABLET PO SCH (09:32)
[2020-07-11] MEDS: HEPARIN NA (PORCINE) 5,000 UNITS/ML 1ML VIAL SQ SCH ×2 (09:32→21:45)
[2020-07-11] MEDS: TAMSULOSIN HCL 0.4 MG CAP PO SCH (09:32)
[2020-07-11] MEDS: CEFTRIAXONE 2 GM in DEXTROSE 5%-WATER 2 GM/100 ML BAG IVPB SCH (14:07)
[2020-07-11] MEDS: ATORVASTATIN CA 10 MG TABLET (FP) PO SCH (21:45)
[2020-07-12 07:55] LABS: BASO % 0.3 % (0-2.0); HEMATOCRIT 36.1 % (32.4-45.2); HEMOGLOBIN 11.7 GM/dL (10.7-15.3); LYMPH % 34.9 % (8-40); MCH 26.3 pg (25.7-33.7); MCHC 32.3 g/dl (32.0-36.0); MEAN CELL VOLUME 81.3 fl (80-96); MONO % 11.3 % (3.8-10.2); NEUT % 51.5 % (42.8-82.8); PLATELET COUNT 215 K/MM3 (134-434); RBC 4.44 M/mm3 (3.60-5.2); RDW 14.9 % (11.6-15.6); WHITE BLOOD COUNT 6.5 K/mm3 (4.0-10.0)
[2020-07-12 08:13] LABS: POTASSIUM 3.9 mmol/L (3.5-5.1)
[2020-07-12 08:41] LABS: ALBUMIN 2.8 g/dl (3.4-5.0); BLOOD UREA NITROGEN 9.6 mg/dL (7-18)
[2020-07-12 08:43] LABS: BILIRUBIN,DIRECT 0.1 mg/dL (0.0-0.2)
[2020-07-12 08:44] LABS: CREATININE 0.5 mg/dL (0.55-1.3)
[2020-07-12 08:45] LABS: BILIRUBIN,TOTAL 0.3 mg/dL (0.2-1); TOT PROT 6.4 g/dl (6.4-8.2)
[2020-07-12] MEDS ORDERED: PT OWN MED DRAWER 7, Y5N ONE (10:27)
[2020-07-12] MEDS ORDERED: DEXTROSE 5%-WATER 100 ML IVPB ONE (10:28)
[2020-07-12] MEDS: FAMOTIDINE 20 MG TABLET PO SCH (10:35)
[2020-07-12] MEDS: TAMSULOSIN HCL 0.4 MG CAP PO SCH (10:35)
[2020-07-12] MEDS: LACTOBACILLUS ACIDOPHILUS 1 TABLET PO SCH (10:35)
[2020-07-12] MEDS: HEPARIN NA (PORCINE) 5,000 UNITS/ML 1ML VIAL SQ SCH ×2 (10:38→21:14)
[2020-07-12] MEDS: CEFTRIAXONE 2 GM in DEXTROSE 5%-WATER 2 GM/100 ML BAG IVPB SCH (12:14)
[2020-07-12 13:07] LABS: HEP B CORE AB, TOT Positive (Negative); TRANSGLUTAMINASE IGA < 2 U/mL (0-3); TRANSGLUTAMINASE IGG < 2 U/mL (0-5)
[2020-07-12] MEDS: SODIUM CHLORIDE 1,000 ML IV SCH ×2 (18:50→21:13)
[2020-07-12 22:09] LABS: PH,URINE 6.5 (5.0-8.0); URINE APPEARANCE CLEAR; URINE BILIRUBIN NEGATIVE (NEGATIVE); URINE COLOR YELLOW; URINE GLUCOSE (UA) NEGATIVE (NEGATIVE); URINE KETONE NEGATIVE (NEGATIVE); URINE LEUK ESTERASE NEGATIVE (NEGATIVE); URINE NITRITE NEGATIVE (NEGATIVE); URINE PROTEIN NEGATIVE (NEGATIVE); URINE UROBILINOGEN 0.2 mg/dL (0.2-1.0)
[2020-07-13 09:44] LABS: BASO % 0.2 % (0-2.0); EOS % 2.7 % (0-4.5); HEMATOCRIT 36.4 % (32.4-45.2); HEMOGLOBIN 11.9 GM/dL (10.7-15.3); LYMPH % 30.2 % (8-40); MCH 26.5 pg (25.7-33.7); MCHC 32.5 g/dl (32.0-36.0); MEAN CELL VOLUME 81.3 fl (80-96); MEAN PLT VOLUME 7.8 fl (7.5-11.1); MONO % 8.2 % (3.8-10.2); NEUT % 58.7 % (42.8-82.8); PLATELET COUNT 243 K/MM3 (134-434); RBC 4.48 M/mm3 (3.60-5.2); RDW 14.8 % (11.6-15.6); WHITE BLOOD COUNT 6.2 K/mm3 (4.0-10.0)
[2020-07-13] MEDS ORDERED: DEXTROSE 5%-WATER 100 ML IVPB ONE (09:46)
[2020-07-13 10:10] LABS: POTASSIUM 4.1 mmol/L (3.5-5.1)
[2020-07-13 10:17] LABS: ALBUMIN 2.9 g/dl (3.4-5.0); BLOOD UREA NITROGEN 12.2 mg/dL (7-18); CALCIUM 8.8 mg/dL (8.5-10.1)
[2020-07-13 10:20] LABS: BILIRUBIN,DIRECT 0.1 mg/dL (0.0-0.2)
[2020-07-13 10:21] LABS: CREATININE 0.7 mg/dL (0.55-1.3)
[2020-07-13 10:22] LABS: BILIRUBIN,TOTAL 0.6 mg/dL (0.2-1); TOT PROT 6.5 g/dl (6.4-8.2)
[2020-07-13] MEDS ORDERED: PT OWN MED DRAWER 7, Y5N ONE ×2 (11:10→16:42)
[2020-07-13] MEDS: TAMSULOSIN HCL 0.4 MG CAP PO SCH (11:17)
[2020-07-13] MEDS: LACTOBACILLUS ACIDOPHILUS 1 TABLET PO SCH (11:18)
[2020-07-13] MEDS: FAMOTIDINE 20 MG TABLET PO SCH (11:18)
[2020-07-13] MEDS: ERTAPENEM SODIUM 1 GM in SODIUM CHLORIDE 50 ML IVPB SCH (13:06)
[2020-07-13] MEDS: HEPARIN NA (PORCINE) 5,000 UNITS/ML 1ML VIAL SQ SCH ×2 (16:41→22:59)
[2020-07-13] MEDS: CEFTRIAXONE 2 GM in DEXTROSE 5%-WATER 2 GM/100 ML BAG IVPB SCH (16:41)
[2020-07-13] MEDS: SODIUM CHLORIDE 1,000 ML IV SCH ×2 (17:33→22:58)
[2020-07-14] MEDS ORDERED: PT OWN MED DRAWER 7, Y5N ONE ×3 (05:46→16:33)
[2020-07-14 07:45] LABS: ALBUMIN 2.9 g/dl (3.4-5.0)
[2020-07-14 07:48] LABS: BILIRUBIN,DIRECT 0.1 mg/dL (0.0-0.2)
[2020-07-14 07:50] LABS: BILIRUBIN,TOTAL 0.7 mg/dL (0.2-1); TOT PROT 6.4 g/dl (6.4-8.2)
[2020-07-14] MEDS: TAMSULOSIN HCL 0.4 MG CAP PO SCH (08:40)
[2020-07-14] MEDS: LACTOBACILLUS ACIDOPHILUS 1 TABLET PO SCH (09:55)
[2020-07-14] MEDS: FAMOTIDINE 20 MG TABLET PO SCH (09:55)
[2020-07-14] MEDS: ERTAPENEM SODIUM 1 GM in SODIUM CHLORIDE 50 ML IVPB SCH (09:56)
[2020-07-14] MEDS: HEPARIN NA (PORCINE) 5,000 UNITS/ML 1ML VIAL SQ SCH ×2 (09:57→21:24)
[2020-07-14] MEDS: SODIUM CHLORIDE 1,000 ML IV SCH ×2 (17:52→20:50)
[2020-07-15] MEDS ORDERED: PT OWN MED DRAWER 7, Y5N ONE ×3 (05:22→17:38)
[2020-07-15 08:26] LABS: BASO % 0.2 % (0-2.0); EOS % 2.2 % (0-4.5); HEMOGLOBIN 12.3 GM/dL (10.7-15.3); MCH 26.4 pg (25.7-33.7); MCHC 32.3 g/dl (32.0-36.0); MEAN CELL VOLUME 81.5 fl (80-96); MEAN PLT VOLUME 8.1 fl (7.5-11.1); MONO % 7.3 % (3.8-10.2); NEUT % 55.3 % (42.8-82.8); PLATELET COUNT 280 K/MM3 (134-434); RBC 4.66 M/mm3 (3.60-5.2); RDW 14.8 % (11.6-15.6); WHITE BLOOD COUNT 7.2 K/mm3 (4.0-10.0)
[2020-07-15 08:45] LABS: POTASSIUM 4.7 mmol/L (3.5-5.1)
[2020-07-15 08:52] LABS: ALBUMIN 3.2 g/dl (3.4-5.0); BLOOD UREA NITROGEN 15.1 mg/dL (7-18); CALCIUM 9.2 mg/dL (8.5-10.1)
[2020-07-15 08:56] LABS: CREATININE 0.6 mg/dL (0.55-1.3)
[2020-07-15 08:57] LABS: BILIRUBIN,TOTAL 0.3 mg/dL (0.2-1); TOT PROT 7.1 g/dl (6.4-8.2)
[2020-07-15] MEDS: TAMSULOSIN HCL 0.4 MG CAP PO SCH (10:12)
[2020-07-15] MEDS: LACTOBACILLUS ACIDOPHILUS 1 TABLET PO SCH (10:12)
[2020-07-15] MEDS: FAMOTIDINE 20 MG TABLET PO SCH (10:12)
[2020-07-15] MEDS: ERTAPENEM SODIUM 1 GM in SODIUM CHLORIDE 50 ML IVPB SCH (10:12)
[2020-07-15] MEDS: HEPARIN NA (PORCINE) 5,000 UNITS/ML 1ML VIAL SQ SCH ×2 (10:13→22:25)
[2020-07-15 11:45] LABS: ANISOCYTOSIS 0; HELMET CELLS 0; HOWELL-JOLLY BODIES 0; MACROCYTOSIS 0; OVALOCYTE 0; PLATELET ESTIMATE NORMAL; ROULEAU 0; SICKELED CELLS 0; TARGET CELLS 0; TEAR DROP CELLS 0; TOXIC GRANULATION 0
[2020-07-15] MEDS: SODIUM CHLORIDE 1,000 ML IV SCH ×2 (15:54→22:24)
[2020-07-15 18:05] VITALS: BMI 22.9
[2020-07-16] MEDS ORDERED: PT OWN MED DRAWER 7, Y5N ONE ×2 (06:24→12:06)
[2020-07-16 08:47] LABS: ALBUMIN 3.4 g/dl (3.4-5.0)
[2020-07-16 08:49] LABS: BILIRUBIN,DIRECT 0.1 mg/dL (0.0-0.2)
[2020-07-16 08:52] LABS: BILIRUBIN,TOTAL 0.4 mg/dL (0.2-1); TOT PROT 7.7 g/dl (6.4-8.2)
[2020-07-16] MEDS: FAMOTIDINE 20 MG TABLET PO SCH (10:20)
[2020-07-16] MEDS: TAMSULOSIN HCL 0.4 MG CAP PO SCH (10:21)
[2020-07-16] MEDS: LACTOBACILLUS ACIDOPHILUS 1 TABLET PO SCH (10:21)
[2020-07-16] MEDS: ERTAPENEM SODIUM 1 GM in SODIUM CHLORIDE 50 ML IVPB SCH (12:17)
[2020-07-16 15:32] VITALS: BP 118/63; PULSE 80; TEMP 98.2
== END 2020-07-16 16:30 | disposition home or self-care (01) | DRG 872 ==
LOC: JER 14:15 → JERBED 14:47 → J8W 19:50
PROVIDERS: ADMIT Internal Medicine; ATTEND Internal Medicine
PROC: 02HV33Z Insertion of Infusion Device into Superior Vena Cava, Percutaneous Approach (ICD-10-PCS; principal; 2020-07-16)
PROC: B548ZZA Ultrasonography of Superior Vena Cava, Guidance (ICD-10-PCS; 2020-07-16)
DX: A41.51 Sepsis due to Escherichia coli [E. coli] (principal); N13.6 Pyonephrosis; E11.9 Type 2 diabetes mellitus without complications; K21.9 Gastro-esophageal reflux disease without esophagitis; E78.5 Hyperlipidemia, unspecified; Z79.84 Long term (current) use of oral hypoglycemic drugs; K57.90 Diverticulosis of intestine, part unspecified, without perforation or abscess without bleeding; K55.20 Angiodysplasia of colon without hemorrhage; K44.9 Diaphragmatic hernia without obstruction or gangrene; K76.89 Other specified diseases of liver; R74.01 Elevation of levels of liver transaminase levels; K82.4 Cholesterolosis of gallbladder; K76.0 Fatty (change of) liver, not elsewhere classified
CPT/HCPCS: 36415; 36569; 71045-TC-FY; 71250-TC; 74176-TC; 76705-TC; 77001-TC-FY; 80048; 80053; 80076; 81003; 82105; 82728; 82962; 83516; 83540; 83550; 83605; 83880; 84439; 84443; 84481; 84484; 85025; 85610; 85730; 86038; 86704; 86706; 86707; 86708; 86709; 86769; 86803; 87040; 87086; 87186; 87340; 87517; 87804; 90670; 93005; 93010; 93306-TC; 99285-25; C1751; C9803; J0131; J1644; U0003

== ENCOUNTER 2022-10-25 22:59 | Observation (INO) | payer OTHER, MEDICARE ==
[2022-10-25] MEDS ORDERED: SODIUM CHLORIDE 1,000 ML IV SCH (23:45)
[2022-10-26 00:07] LABS: BASO % 0.2 % (0-2.0); EOS % 1.3 % (0-4.5); HEMATOCRIT 42.3 % (32.4-45.2); HEMOGLOBIN 13.7 GM/dL (10.7-15.3); LYMPH % 28.5 % (8-40); MCH 26.1 pg (25.7-33.7); MCHC 32.5 g/dl (32.0-36.0); MEAN CELL VOLUME 80.3 fl (80-96); MEAN PLT VOLUME 8.2 fl (7.5-11.1); MONO % 7.8 % (3.8-10.2); NEUT % 62.2 % (42.8-82.8); PLATELET COUNT 209 10^3/uL (134-434); RBC 5.26 M/mm3 (3.60-5.2); RDW 15.2 % (11.6-15.6); WHITE BLOOD COUNT 7.1 K/mm3 (4.0-10.0)
[2022-10-26 00:20] LABS: INR 0.9 (0.83-1.09); PROTHROMBIN TIME (PATIENT) 10.4 SEC (9.7-13.0)
[2022-10-26 00:23] LABS: ACTIVATED PTT 27.9 SECONDS (25.2-36.5)
[2022-10-26] MEDS ORDERED: ROSUVASTATIN CA 10 MG TABLET PO ONE (00:52)
[2022-10-26 01:24] LABS: POTASSIUM 4.5 mmol/L (3.5-5.1)
[2022-10-26 01:28] LABS: CALCIUM 9.4 mg/dL (8.5-10.1)
[2022-10-26 01:29] LABS: ALBUMIN 3.8 g/dl (3.4-5.0)
[2022-10-26 01:30] LABS: BLOOD UREA NITROGEN 19.7 mg/dL (7-18)
[2022-10-26 01:32] LABS: CREATININE 0.7 mg/dL (0.55-1.3)
[2022-10-26 01:33] LABS: TOT PROT 7.3 g/dl (6.4-8.2)
[2022-10-26 01:34] LABS: BILIRUBIN,TOTAL 0.5 mg/dL (0.2-1)
[2022-10-26] MEDS ORDERED: LOSARTAN POTASSIUM 25 MG TABLET PO ONE ×2 (01:48→20:43)
[2022-10-26 01:55] VITALS: BMI 25.1
[2022-10-26] MEDS: metFORMIN HCL 500 MG TABLET (FP) PO SCH (06:23)
[2022-10-26 07:49] LABS: PH,URINE 6.5 (5.0-8.0); URINE APPEARANCE CLEAR; URINE BILIRUBIN NEGATIVE (NEGATIVE); URINE COLOR YELLOW; URINE GLUCOSE (UA) NEGATIVE (NEGATIVE); URINE KETONE NEGATIVE (NEGATIVE); URINE LEUK ESTERASE NEGATIVE (NEGATIVE); URINE NITRITE NEGATIVE (NEGATIVE); URINE PROTEIN NEGATIVE (NEGATIVE); URINE UROBILINOGEN 0.2 mg/dL (0.2-1.0)
[2022-10-26 07:53] LABS: POTASSIUM 4.2 mmol/L (3.5-5.1)
[2022-10-26 07:54] LABS: BLOOD UREA NITROGEN 14.2 mg/dL (7-18); CALCIUM 9.1 mg/dL (8.5-10.1)
[2022-10-26 07:58] LABS: CREATININE 0.5 mg/dL (0.55-1.3)
[2022-10-26] MEDS ORDERED: LOSARTAN POTASSIUM 25 MG TABLET PO SCH (10:00)
[2022-10-26] MEDS: ASPIRIN COATED 81 MG TABLET.EC PO SCH (12:25)
[2022-10-26] MEDS: VANCOMYCIN ORAL SOLUTION 125 MG/2.5 ML PO SCH (13:16)
[2022-10-26] MEDS ORDERED: ROSUVASTATIN CA 10 MG TABLET PO SCH (22:00)
[2022-10-27] MEDS: metFORMIN HCL 500 MG TABLET (FP) PO SCH (06:11)
[2022-10-27 07:36] LABS: POTASSIUM 4.6 mmol/L (3.5-5.1)
[2022-10-27 07:38] LABS: BLOOD UREA NITROGEN 12.4 mg/dL (7-18); CALCIUM 9.8 mg/dL (8.5-10.1)
[2022-10-27 07:42] LABS: CREATININE 0.6 mg/dL (0.55-1.3)
[2022-10-27] MEDS ORDERED: LOSARTAN POTASSIUM 50 MG TABLET PO SCH (08:07)
[2022-10-27] MEDS: VANCOMYCIN ORAL SOLUTION 125 MG/2.5 ML PO SCH (10:02)
[2022-10-27] MEDS: ASPIRIN COATED 81 MG TABLET.EC PO SCH (10:02)
[2022-10-27 11:32] VITALS: BP 119/62; PULSE 76; RESP 18; TEMP 98.2
== END 2022-10-27 13:43 | disposition home or self-care (01) ==
LOC: JER 22:59 → JERBED 23:41 → J4S 10-26 01:59
PROVIDERS: ADMIT Internal Medicine; ATTEND Specialist
PROC: 3E0337Z Introduction of Electrolytic and Water Balance Substance into Peripheral Vein, Percutaneous Approach (ICD-10-PCS; principal; 2022-10-25)
DX: G45.9 Transient cerebral ischemic attack, unspecified (principal); I16.1 Hypertensive emergency; K52.9 Noninfective gastroenteritis and colitis, unspecified; E78.5 Hyperlipidemia, unspecified; E11.9 Type 2 diabetes mellitus without complications
CPT/HCPCS: 36415; 70450-TC; 70544-TC; 70551-TC; 80048; 80053; 80061; 81003; 82550; 82962; 83036; 83735; 84484; 85025; 85610; 85730; 86850; 86900; 86901; 93005; 93010; 93306-TC; 93880-TC; 96360; 99285-25; G0378

== ENCOUNTER 2024-05-09 18:45 | Emergency (ER) | payer OTHER ==
[2024-05-09 19:01] VITALS: BP 145/79; PULSE 80; TEMP 98.3; BMI 23.0
[2024-05-09] MEDS ORDERED: ACETAMINOPHEN 325 MG TABLET (FP) ONE (19:20)
[2024-05-09] MEDS: ACETAMINOPHEN 325 MG TABLET (FP) PO ONE (19:24)
[2024-05-09] MEDS: DIPHTH,PERTUSS(ACELL),TET 0.5 ML DISP.SYRIN IM ONE (20:12)
[2024-05-09] MEDS ORDERED: DIPHTH,PERTUSS(ACELL),TET 0.5 ML DISP.SYRIN IM ONE (20:12)
== END 2024-05-09 21:16 | disposition home or self-care (01) ==
LOC: JER 18:45
PROC: 0HQ0XZZ Repair Scalp Skin, External Approach (ICD-10-PCS; principal; 2024-05-09)
PROC: 3E0234Z Introduction of Serum, Toxoid and Vaccine into Muscle, Percutaneous Approach (ICD-10-PCS; 2024-05-09)
DX: S01.01XA Laceration without foreign body of scalp, initial encounter (principal); W01.198A Fall on same level from slipping, tripping and stumbling with subsequent striking against other object, initial encounter; Z23 Encounter for immunization
CPT/HCPCS: 12001-25; 70450-TC; 72125-TC; 90471; 90715; 93005; 93010; 99284-25

== ENCOUNTER → 2024-07-27 | Day surgery (SDC) | payer MEDICARE, OTHER | END | disposition home or self-care (01) | LOC: JRADIR 09:31 | PROVIDERS: ATTEND Internal Medicine | PROC: 0G9G3ZX Drainage of Left Thyroid Gland Lobe, Percutaneous Approach, Diagnostic (ICD-10-PCS; principal; 2024-07-27) | DX: E04.2 Nontoxic multinodular goiter (principal) | CPT/HCPCS: 10005; 76942; 88173; 88305-TC ==